=== PATIENT | female | born 1950 | race Caucasian/White ===

== ENCOUNTER 2017-02-10 23:14 | Inpatient (IN) | payer MEDICARE, OTHER ==
[~2017-02-10] VITALS: Ht 160 cm; Wt 121.0 kg
[2017-02-11 00:08] LABS: BASOPHIL % 0.9 % (0-2); PLATELET COUNT 259 x10^3mcL (130-400); RED CELL DISTRIBUTION WIDTH 14.2 % (11.5-14.5)
[2017-02-11 00:19] LABS: CALCIUM 8.6 mg/dL (8.5-10.1); CARBON DIOXIDE 25.4 mmol/L (21-32); CHLORIDE SERUM 107 mmol/L (98-107); CREATININE SERUM 0.9 mg/dL (0.6-1.0); GFR1 > 60 mL/min; GLUCOSE SERUM 113 mg/dL (74-106); POTASSIUM SERUM 3.8 mmol/L (3.5-5.1); SODIUM SERUM 140 mmol/L (136-145)
[2017-02-11 00:24] LABS: ALBUMIN 3.4 g/dL (3.4-5.0); ALKALINE PHOSPHATASE 106 U/L (46-116); ALT/SGPT 14 U/L (14-59); AST/SGOT 20 U/L (15-37); BILIRUBIN TOTAL 0.8 mg/dL (0.20-1.00); LIPASE 112 IU/L (73-393); TOTAL PROTEIN, SERUM 6.8 g/dL (6.4-8.2)
[2017-02-11] MEDS ORDERED: CYMBALTA60 M1 PO (01:02)
[2017-02-11] MEDS ORDERED: DITROPAN XL5 MG PO (01:06)
[2017-02-11] MEDS ORDERED: NEU300 (01:06)
[2017-02-11] MEDS ORDERED: NEU300 PO (01:07)
[2017-02-11] MEDS ORDERED: CLARITIN LIQUI-10 MG PO (01:09)
[2017-02-11] MEDS ORDERED: LOSARTAN POTASS25 M1 PO (01:09)
[2017-02-11] MEDS ORDERED: GLUCOPHAGE XR500 MG PO (01:09)
[2017-02-11] MEDS ORDERED: LEVOTHYROXIN0.025 M2 PO (01:10)
[2017-02-11] MEDS ORDERED: ASPIR 8181 MG PO (01:10)
[2017-02-11] MEDS ORDERED: NOR10 PO (01:10)
[2017-02-11 02:46] VITALS: BP 134/83
[2017-02-11 03:17] LABS: T3 TOTAL 1.17 ng/mL
[2017-02-11 03:24] LABS: CHOLESTEROL/HDL RATIO 4.1; PHOSPHOROUS 4.5 mg/dL (2.5-4.9)
[2017-02-11 03:41] LABS: FREE T4 1.13 ng/dL (0.76-1.46); FREE THYROXINE INDEX 2.6 ug/dL (1.4-4.5); T4(THYROXINE) 8.2 ug/dL (4.7-13.3)
[2017-02-11 08:24] LABS: UA SPECIFIC GRAVITY <=1.005 (1.005-1.035); microscopic required? YES; urine erythrocyte TRACE (NEGATIVE)
[2017-02-11 08:30] VITALS: BP 120/73
[2017-02-11 16:14] VITALS: BP 121/77
[2017-02-11 21:12] VITALS: BP 134/75
[2017-02-12 05:32] VITALS: BP 106/73
[2017-02-12 07:24] LABS: CALCIUM 8.7 mg/dL (8.5-10.1); CARBON DIOXIDE 24.7 mmol/L (21-32); CHLORIDE SERUM 115 mmol/L (98-107); CREATININE SERUM 0.6 mg/dL (0.6-1.0); GFR1 > 60 mL/min; GLUCOSE SERUM 116 mg/dL (74-106); MAGNESIUM 1.8 mg/dL (1.8-2.4); PHOSPHOROUS 4.6 mg/dL (2.5-4.9); POTASSIUM SERUM 4.1 mmol/L (3.5-5.1); SODIUM SERUM 144 mmol/L (136-145)
[2017-02-12 07:32] LABS: BASOPHIL % 0.6 % (0-2); PLATELET COUNT 109 x10^3mcL (130-400); RED CELL DISTRIBUTION WIDTH 14.2 % (11.5-14.5)
[2017-02-12 10:08] VITALS: BP 122/74
[2017-02-12 13:43] VITALS: BP 129/78
[2017-02-12 17:25] VITALS: BP 108/64
[2017-02-12 21:57] VITALS: BP 113/63
[2017-02-13 05:50] VITALS: BP 107/63
[2017-02-13 08:04] LABS: CALCIUM 8.8 mg/dL (8.5-10.1); CARBON DIOXIDE 26.3 mmol/L (21-32); CHLORIDE SERUM 101 mmol/L (98-107); CREATININE SERUM 0.6 mg/dL (0.6-1.0); GFR1 > 60 mL/min; GLUCOSE SERUM 115 mg/dL (74-106); PHOSPHOROUS 4.2 mg/dL (2.5-4.9); SODIUM SERUM 141 mmol/L (136-145)
[2017-02-13] MEDS ORDERED: PRI20 PO ×2 (09:45→09:49)
[2017-02-13 09:55] VITALS: BP 105/45
[2017-02-13 10:29] VITALS: BP 105/45
[2017-02-13 11:05] LABS: BASOPHIL % 0.7 % (0-2); PLATELET COUNT 253 x10^3mcL (130-400); RED CELL DISTRIBUTION WIDTH 14.5 % (11.5-14.5)
== END 2017-02-13 12:00 | disposition home or self-care (01) | DRG 392 ==
LOC: ED 23:14 → DU 02-11 01:21 → MU 02-13 09:39
PROVIDERS: Emergency Medicine; Internal Medicine Gastroenterology; Student in an Organized Health Care Education/Training Program; ADMIT Family Medicine
PROC: 0DB68ZX Excision of Stomach, Via Natural or Artificial Opening Endoscopic, Diagnostic (ICD-10-PCS; principal; 2017-02-12 10:30)
DX: K29.70 Gastritis, unspecified, without bleeding (principal); D68.69 Other thrombophilia; Z68.42 Body mass index [BMI] 45.0-49.9, adult; K29.80 Duodenitis without bleeding; E11.65 Type 2 diabetes mellitus with hyperglycemia; E11.40 Type 2 diabetes mellitus with diabetic neuropathy, unspecified; E11.59 Type 2 diabetes mellitus with other circulatory complications; K44.9 Diaphragmatic hernia without obstruction or gangrene; I10 Essential (primary) hypertension; M06.9 Rheumatoid arthritis, unspecified; M79.7 Fibromyalgia; E03.9 Hypothyroidism, unspecified; F32.9 Major depressive disorder, single episode, unspecified; E66.01 Morbid (severe) obesity due to excess calories; Z79.84 Long term (current) use of oral hypoglycemic drugs; Z79.82 Long term (current) use of aspirin
CPT/HCPCS: 43235; 82962; 83880; 84439; J1200; J1610; J2250; J2310; J3010; J3490; J7030; Q0092

== ENCOUNTER 2017-07-27 11:17 | Emergency (ER) | payer MEDICARE, OTHER ==
[~2017-07-27] VITALS: Ht 157.5 cm; Wt 117.5 kg
[~2017-07-27 11:17] MED LIST: ASPIR 8181 MG PO; CLARITIN LIQUI-10 MG PO; CYMBALTA60 M1 PO; DITROPAN XL5 MG PO; GLUCOPHAGE XR500 MG PO; LEVOTHYROXIN0.025 M2 PO; LOSARTAN POTASS25 M1 PO; NEU300; NEU300 PO; NOR10 PO; PRI20 PO
[2017-07-27 11:35] VITALS: Ht 157.5 cm; Wt 117.5 kg
[2017-07-27 14:28] LABS: UA SPECIFIC GRAVITY >=1.030 (1.005-1.035); microscopic required? YES; urine erythrocyte 1+ (NEGATIVE)
[2017-07-27 14:35] LABS: CALCIUM 9.1 mg/dL (8.5-10.1); CARBON DIOXIDE 25.6 mmol/L (21-32); CREATININE SERUM 1.2 mg/dL (0.6-1.0); POTASSIUM SERUM 3.4 mmol/L (3.5-5.1)
[2017-07-27 14:36] LABS: BASOPHIL % 0.4 % (0-2); PLATELET COUNT 225 x10^3mcL (130-400); RED CELL DISTRIBUTION WIDTH 14.2 % (11.5-14.5)
[2017-07-27 14:46] LABS: ALBUMIN 3.8 g/dL (3.4-5.0); BILIRUBIN TOTAL 2.02 mg/dL (0.20-1.00); C REACTIVE PROTEIN 9.1 mg/dL (<=0.9); TOTAL PROTEIN, SERUM 8.1 g/dL (6.4-8.2)
[2017-07-27 14:48] LABS: CREATINE KINASE 57 U/L (26-192)
[2017-07-27 14:57] LABS: T3 TOTAL 0.69 ng/mL
[2017-07-27 15:11] LABS: CK-MB < 0.5 ng/mL (0-3.6)
[2017-07-27 15:14] LABS: FREE T4 1.04 ng/dL (0.76-1.46); FREE THYROXINE INDEX 2.6 ug/dL (1.4-4.5); T4(THYROXINE) 8.3 ug/dL (4.7-13.3)
[2017-07-27 15:54] LABS: ERYTHROCYTE SED RATE 24 mm/hr (0-30)
[2017-07-27 16:21] VITALS: BP 127/52
== END 2017-07-27 16:21 | disposition home or self-care (01) ==
LOC: ED 11:17
PROVIDERS: Specialist
DX: J20.9 Acute bronchitis, unspecified (principal); I10 Essential (primary) hypertension; E11.9 Type 2 diabetes mellitus without complications; E78.00 Pure hypercholesterolemia, unspecified; M79.7 Fibromyalgia
CPT/HCPCS: 36600; 83880; 84439; J7030

== ENCOUNTER 2018-06-21 15:25 | Emergency (ER) | payer MEDICARE, OTHER ==
[~2018-06-21] VITALS: Ht 157.5 cm; Wt 124.9 kg
[2018-06-21 18:10] VITALS: BP 145/95
== END 2018-06-21 18:10 | disposition home or self-care (01) ==
LOC: ED 15:25
DX: J30.9 Allergic rhinitis, unspecified (principal); J40 Bronchitis, not specified as acute or chronic; I10 Essential (primary) hypertension; E11.9 Type 2 diabetes mellitus without complications; E78.00 Pure hypercholesterolemia, unspecified; M79.7 Fibromyalgia
CPT/HCPCS: Q0092

== ENCOUNTER 2018-09-12 18:17 | Emergency (ER) | payer OTHER, MEDICAID ==
[~2018-09-12] VITALS: Ht 162.6 cm; Wt 122.5 kg
[2018-09-12 18:24] VITALS: Ht 162.6 cm; Wt 122.5 kg
[2018-09-12 19:20] LABS: BASOPHIL % 0.4 % (0-2); PLATELET COUNT 275 x10^3mcL (130-400); RED CELL DISTRIBUTION WIDTH 14.3 % (11.5-14.5)
[2018-09-12 19:21] LABS: CALCIUM 8.8 mg/dL (8.5-10.1); CARBON DIOXIDE 30.7 mmol/L (21-32); CHLORIDE SERUM 104 mmol/L (98-107); CREATININE SERUM 0.7 mg/dL (0.6-1.0); GFR1 > 60 mL/min; GLUCOSE SERUM 135 mg/dL (74-106); POTASSIUM SERUM 3.9 mmol/L (3.5-5.1); SODIUM SERUM 141 mmol/L (136-145)
[2018-09-12 19:26] LABS: ALBUMIN 3.5 g/dL (3.4-5.0); ALKALINE PHOSPHATASE 108 U/L (46-116); ALT/SGPT 21 U/L (14-59); AST/SGOT 25 U/L (15-37); BILIRUBIN TOTAL 1.36 mg/dL (0.20-1.00); TOTAL PROTEIN, SERUM 7.2 g/dL (6.4-8.2)
[2018-09-12 19:58] LABS: microscopic required? YES; urine erythrocyte 1+ (NEGATIVE)
[2018-09-12 20:56] VITALS: BP 14/82
== END 2018-09-12 20:56 | disposition home or self-care (01) ==
LOC: ED 18:17
PROVIDERS: Emergency Medicine
DX: R42 Dizziness and giddiness (principal); R07.89 Other chest pain; R11.2 Nausea with vomiting, unspecified; R51 Headache; I10 Essential (primary) hypertension; E11.9 Type 2 diabetes mellitus without complications; M79.7 Fibromyalgia
CPT/HCPCS: 82962; J2405; J7030; J8597; Q0092